=== PATIENT | female | born 1955 | race Caucasian/White ===

== ENCOUNTER 2018-09-18 17:01 | Inpatient (IN) | payer OTHER ==
[~2018-09-18] VITALS: Ht 154.9 cm; Wt 70.3 kg
--- NOTE | 2018-09-18 17:25 | NUR ---
SE RECIBE PTE ALERTA Y ORIENTADA X3 LA CUAL REFIERE VENIR POR REFERIDO MEDICO POR INFLAMACION EN DEDO PULGAR EN PIE DONTE. PTE CON DXT EN 454MG/DL. PTE REFIERE NO ESTAR TOMANDO NINGUN MEDICAMENTO AL MOMENTO Y NO PADECER DE NINGUNA CONDICION MEDICA. SE MIDEN S/V A PTE Y SE COLOCA EN AREA DE OBSERVACION PENDIENTE A EVALUACION MEDICA.
--- NOTE | 2018-09-18 17:52 | NUR ---
SE ORIENTA PTE SOBRE TX MEDICO EL CUAL REFIERE ENTENDER.SE LE EXTRAE MUESTRAS,SE CANALIZA Y SE ADMINSTRA MEDICAMENTO PRIYANKA ORDEN MEDICA.
[2018-09-24] MEDS ORDERED: SIMVASTATIN20 MG PO (08:12)
[2018-09-24] MEDS ORDERED: INTEGRA PLUS C1 EACH PO (08:13)
[2018-09-24] MEDS ORDERED: LOSARTAN-HCTZ1 EAC1 PO (08:13)
[2018-09-24] MEDS ORDERED: JANUMET 50-1,01 EACH PO (08:14)
[2018-09-24] MEDS ORDERED: MOXIFLOXACIN H400 MG PO (08:15)
== END 2018-09-24 10:54 | disposition home or self-care (01) | DRG 240 ==
LOC: ER 17:01 → MEDI 21:40
PROVIDERS: Colon & Rectal Surgery; ADMIT Internal Medicine
PROC: 0Y6N0Z4 Detachment at Left Foot, Complete 1st Ray, Open Approach (ICD-10-PCS; principal; 2018-09-20 11:00)
DX: E11.52 Type 2 diabetes mellitus with diabetic peripheral angiopathy with gangrene (principal); I96 Gangrene, not elsewhere classified; L97.528 Non-pressure chronic ulcer of other part of left foot with other specified severity; L02.612 Cutaneous abscess of left foot; E11.621 Type 2 diabetes mellitus with foot ulcer; B95.61 Methicillin susceptible Staphylococcus aureus infection as the cause of diseases classified elsewhere; B95.1 Streptococcus, group B, as the cause of diseases classified elsewhere; I10 Essential (primary) hypertension; E78.00 Pure hypercholesterolemia, unspecified; D50.8 Other iron deficiency anemias; Z79.4 Long term (current) use of insulin; Z91.14 Patient's other noncompliance with medication regimen

== ENCOUNTER 2019-10-16 14:29 | Inpatient (IN) | payer OTHER ==
[~2019-10-16] VITALS: Ht 152.4 cm; Wt 75.3 kg
[~2019-10-16 14:29] MED LIST: INTEGRA PLUS C1 EACH PO; JANUMET 50-1,01 EACH PO; LOSARTAN-HCTZ1 EAC1 PO; MOXIFLOXACIN H400 MG PO; SIMVASTATIN20 MG PO
[2019-10-24] MEDS ORDERED: INTEGRA PLUS C1 EACH PO (12:28)
[2019-10-24] MEDS ORDERED: VITAMIN B-121000 MC2 SL (12:30)
[2019-10-24] MEDS ORDERED: FOLIC ACID1 MG PO (12:31)
[2019-10-24] MEDS ORDERED: INTESTINEX680 M1 PO (12:36)
== END 2019-10-24 13:14 | disposition home or self-care (01) | DRG 689 ==
LOC: ER 14:29 → MEDJ 20:30 → SURH 10-22 12:10
PROVIDERS: ADMIT Internal Medicine; ATTEND Internal Medicine
PROC: BB24ZZZ Computerized Tomography (CT Scan) of Bilateral Lungs (ICD-10-PCS; principal; 2019-10-16)
PROC: BW40ZZZ Ultrasonography of Abdomen (ICD-10-PCS; 2019-10-17)
PROC: 8E0ZXY6 Isolation (ICD-10-PCS; 2019-10-17)
DX: N39.0 Urinary tract infection, site not specified (principal); A41.9 Sepsis, unspecified organism; N17.8 Other acute kidney failure; L02.612 Cutaneous abscess of left foot; D50.8 Other iron deficiency anemias; E78.00 Pure hypercholesterolemia, unspecified; I11.9 Hypertensive heart disease without heart failure; E86.0 Dehydration; E11.65 Type 2 diabetes mellitus with hyperglycemia; E87.8 Other disorders of electrolyte and fluid balance, not elsewhere classified; E03.8 Other specified hypothyroidism; Z03.818 Encounter for observation for suspected exposure to other biological agents ruled out; Z79.4 Long term (current) use of insulin

== ENCOUNTER 2023-10-26 12:55 | Outpatient (CLI) | payer OTHER ==
[~2023-10-26 12:55] MED LIST changes: +FOLIC ACID1 MG PO; +INTESTINEX680 M1 PO; +VITAMIN B-121000 MC2 SL
== END 2023-10-26 13:00 | disposition home or self-care (01) ==
LOC: RAD 12:55
PROVIDERS: ATTEND Orthopaedic Surgery
DX: M25.561 Pain in right knee (principal)

== ENCOUNTER 2024-05-01 07:24 | Outpatient (CLI) | payer OTHER ==
[2024-05-01 08:11] LABS: HEMATOCRIT 36.7 % (36.0-45.00); HEMOGLOBIN 11.8 g/dL (12.0-15.00); MEAN CORPUSCULAR HEMOGLOBIN 21.8 pg (27.00-32.0); MEAN CORPUSCULAR HGB CONC 32.3 g/dl (32.0-36.0); PLATELET COUNT 279 K/uL (150-450); RED BLOOD COUNT 5.43 M/uL (4.00-6.00); RED CELL DISTRIBUTION WIDTH 16.5 % (11.5-14.5)
[2024-05-01 08:15] LABS: MEAN CELL VOLUME 67.5 fL (80.00-100.00)
[2024-05-01 08:23] LABS: COL EPI 73 SECONDS (82-175)
[2024-05-01 08:28] LABS: INR 0.99; PARTIAL THROMBOPLASTIN TIME 29.1 SECONDS (22.0-34.0); PROTHROMBIN TIME 10.8 SECONDS (9.0-11.5)
[2024-05-01 09:07] LABS: URINE APPEARANCE Cloudy; URINE BILIRRUBIN Negative (NEGATIVE); URINE COLOR Yellow; URINE KETONE Negative (NEGATIVE); URINE LEUKOCYTE Moderate; URINE NITRATE Negative; URINE PROTEIN Negative (NEGATIVE); URINE UROBILINOGEN 0.2 E.U./dl
[2024-05-01 09:12] LABS: URINE EPITHELIAL CELLS 19.4 uL (0.0-38.8); URINE RBC 3.3 uL (0.0-20.8); URINE WBC 2320.9 uL (0.0-23.2)
[2024-05-01 09:35] LABS: ALBUMIN 3.7 gm/dL (3.4-5.0); BILIRUBIN TOTAL 0.39 mg/dL (0.3-1.2); CALCIUM 9.4 mg/dL (8.5-10.1); CREATININE SERUM 1.4 mg/dL (0.55-1.02); GFR 37.62; GLOBULINA 3.9 G/DL (2.4-3.5); POTASSIUM 3.97 mEq/L (3.5-5.1); TOTAL PROTEIN 7.6 gm/dL (6.4-8.2)
[2024-05-01 09:35] LABS: URINE BACTERIA > 9821.5 uL (0.0-1933); URINE GLUCOSE >=1000 MG/DL (NEGATIVE)
[2024-05-01 09:36] LABS: URINE BLOOD Trace
[2024-05-01 09:39] LABS: URINE EPITHELIAL CELLS 0-4 /HPF
== END 2024-05-01 07:26 | disposition home or self-care (01) ==
LOC: RAD 07:24
PROVIDERS: ATTEND Orthopaedic Surgery
DX: Z76.89 Persons encountering health services in other specified circumstances (principal)

== ENCOUNTER 2024-05-08 11:15 | Inpatient (IN) | payer OTHER ==
[~2024-05-08] VITALS: Ht 152.4 cm; Wt 79.8 kg
[2024-05-08 13:23] VITALS: BP 104/68
[2024-05-13] MEDS ORDERED: VANCOMYCIN HCL 1,000 MG VIAL ONE (07:29)
[2024-05-13] MEDS ORDERED: POLYMYXIN B SULFATE 500,000 U VIAL ONE (07:29)
[2024-05-13] MEDS ORDERED: CEFTRIAXONE SODIUM 2,000 MG VIAL ONE (07:30)
[2024-05-13] MEDS ORDERED: LIDOCAINE HCL 1%/EPINEPHRINE 20ML VIAL IJ ONE (07:31)
[2024-05-13] MEDS ORDERED: KETOROLAC TROMETHAMINE 60 MG VIAL IM ONE (07:31)
[2024-05-13] MEDS ORDERED: BUPIVACAINE HCL/Mpf 0.5% 10ML VIAL ONE (07:31)
[2024-05-13] MEDS ORDERED: MORPHINE SULFATE 4 MG/ML CARTRIDGE IV ONE (10:30)
[2024-05-13] MEDS ORDERED: BUPIVACAINE HCL/MPF 0.5% 30ML VIAL ONE (11:36)
[2024-05-13] MEDS ORDERED: PANTOPRAZOLE SODIUM 40 MG TABLET.DR PO SCH (12:54)
[2024-05-13] MEDS ORDERED: SODIUM CHLORIDE 0.45 % 1,000 ML IV SCH (13:00)
[2024-05-13] MEDS ORDERED: TRAMADOL HCL 50 MG TABLET PO PRN (13:00)
[2024-05-13] MEDS ORDERED: MEPERIDINE HCL/PF 50 MG/ML VIAL IM PRN (13:00)
[2024-05-13] MEDS ORDERED: ONDANSETRON HCL 2 MG/ML VIAL IV PRN (13:00)
[2024-05-13] MEDS ORDERED: ONDANSETRON 4 MG TAB.RAPDIS PO PRN (13:00)
[2024-05-13] MEDS ORDERED: ACETAMINOPHEN 325 MG TABLET PO SCH (13:00)
[2024-05-13] MEDS ORDERED: PROMETHAZINE HCL 50 MG/ML AMPUL IM PRN (13:00)
[2024-05-13] MEDS ORDERED: XARELTO10 M1 (13:24)
[2024-05-13] MEDS ORDERED: JARDIANCE25 MG (13:25)
[2024-05-13] MEDS ORDERED: ATORVASTATIN CA20 MG (13:25)
[2024-05-13] MEDS ORDERED: MOUNJARO7.5 MG/0.5 (13:25)
[2024-05-13] MEDS ORDERED: SYNTHROID75 MCG (13:25)
[2024-05-13 14:40] VITALS: BP 109/68; O2SAT 92
[2024-05-13 16:00] VITALS: BP 91/58; O2SAT 98
[2024-05-13] MEDS ORDERED: CELECOXIB 200 MG CAPSULE PO SCH (17:00)
[2024-05-14 00:37] VITALS: BP 90/55; O2SAT 97
[2024-05-14 06:48] LABS: HEMATOCRIT 23.8 % (36.0-45.00); MEAN CORPUSCULAR HGB CONC 31.9 g/dl (32.0-36.0); PLATELET COUNT 168 K/uL (150-450); RED BLOOD COUNT 3.44 M/uL (4.00-6.00); RED CELL DISTRIBUTION WIDTH 16.3 % (11.5-14.5)
[2024-05-14 08:00] VITALS: BP 118/71; O2SAT 900
[2024-05-14 08:06] LABS: HEMOGLOBIN 7.6 g/dL (12.0-15.00)
[2024-05-14] MEDS ORDERED: FUROsemide 20 MG/2 ML VIAL IV SCH (08:15)
[2024-05-14] MEDS ORDERED: CEFTRIAXONE SODIUM 2,000 MG in 0.9 % SODIUM CHLORIDE 100 ML IV SCH (09:00)
[2024-05-14] MEDS ORDERED: RIVAROXABAN 10 MG TAB PO SCH (09:00)
[2024-05-14 13:00] VITALS: BP 97/50; O2SAT 95
[2024-05-14 22:37] VITALS: BP 127/67; O2SAT 95
[2024-05-15 00:37] VITALS: BP 109/49; O2SAT 98
[2024-05-15 08:00] VITALS: BP 160/86; O2SAT 97
[2024-05-15 08:06] LABS: HEMATOCRIT 28.6 % (36.0-45.00); MEAN CELL VOLUME 71.3 fL (80.00-100.00); MEAN CORPUSCULAR HEMOGLOBIN 23.1 pg (27.00-32.0); MEAN CORPUSCULAR HGB CONC 32.5 g/dl (32.0-36.0); PLATELET COUNT 162 K/uL (150-450); RED BLOOD COUNT 4.01 M/uL (4.00-6.00); RED CELL DISTRIBUTION WIDTH 17.3 % (11.5-14.5)
[2024-05-15 08:07] LABS: HEMOGLOBIN 9.3 g/dL (12.0-15.00)
[2024-05-15] MEDS ORDERED: SENNA/DOCUSATE SODIUM 1 TAB TABLET PO SCH (09:00)
[2024-05-15 13:00] VITALS: BP 150/74; O2SAT 100
[2024-05-15 13:11] LABS: HEMATOCRIT 33.9 % (36.0-45.00); MEAN CELL VOLUME 74.3 fL (80.00-100.00); MEAN CORPUSCULAR HEMOGLOBIN 23.8 pg (27.00-32.0); PLATELET COUNT 171 K/uL (150-450); RED BLOOD COUNT 4.57 M/uL (4.00-6.00); RED CELL DISTRIBUTION WIDTH 19.6 % (11.5-14.5)
[2024-05-15 13:13] LABS: HEMOGLOBIN 10.9 g/dL (12.0-15.00)
== END 2024-05-15 17:37 | DRG 470 ==
LOC: O/R 05-13 05:20 → SURG 05-13 05:20 → SURH 05-13 07:00 → SURG 05-13 13:35
PROVIDERS: ADMIT Orthopaedic Surgery; ATTEND Orthopaedic Surgery
PROC: 0SRC0J9 Replacement of Right Knee Joint with Synthetic Substitute, Cemented, Open Approach (ICD-10-PCS; principal; 2024-05-15)
PROC: 30233N1 Transfusion of Nonautologous Red Blood Cells into Peripheral Vein, Percutaneous Approach (ICD-10-PCS; 2024-05-15)
DX: M17.11 Unilateral primary osteoarthritis, right knee (principal); D62 Acute posthemorrhagic anemia

== ENCOUNTER 2024-05-27 09:18 | Emergency (ER) | payer OTHER ==
[~2024-05-27] VITALS: Ht 152.4 cm; Wt 79.8 kg
[~2024-05-27 09:18] MED LIST changes: +ATORVASTATIN CA20 MG; +JARDIANCE25 MG; +MOUNJARO7.5 MG/0.5; +SYNTHROID75 MCG; +XARELTO10 M1
[2024-05-27] MEDS ORDERED: CEFTRIAXONE SODIUM 1,000 MG VIAL IV ONE (09:45)
[2024-05-27] MEDS ORDERED: CEFTRIAXONE SODIUM 1,000 MG VIAL ONE (09:48)
[2024-05-27 10:07] LABS: HEMATOCRIT 34.9 % (36.0-45.00); HEMOGLOBIN 11.1 g/dL (12.0-15.00); MEAN CELL VOLUME 73.5 fL (80.00-100.00); MEAN CORPUSCULAR HEMOGLOBIN 23.4 pg (27.00-32.0); MEAN CORPUSCULAR HGB CONC 31.9 g/dl (32.0-36.0); PLATELET COUNT 396 K/uL (150-450); RED BLOOD COUNT 4.75 M/uL (4.00-6.00); RED CELL DISTRIBUTION WIDTH 19.9 % (11.5-14.5)
[2024-05-27 10:37] LABS: ALBUMIN 3.2 gm/dL (3.4-5.0); BILIRUBIN TOTAL 0.54 mg/dL (0.3-1.2); CALCIUM 9.4 mg/dL (8.5-10.1); CREATININE SERUM 1.29 mg/dL (0.55-1.02); GFR 41.35; GLOBULINA 4.9 G/DL (2.4-3.5); POTASSIUM 4.6 mEq/L (3.5-5.1); TOTAL PROTEIN 8.1 gm/dL (6.4-8.2)
== END 2024-05-27 11:09 | disposition home or self-care (01) ==
LOC: ER 09:21
PROVIDERS: General Practice
DX: L89.612 Pressure ulcer of right heel, stage 2 (principal); E11.621 Type 2 diabetes mellitus with foot ulcer; Z79.84 Long term (current) use of oral hypoglycemic drugs; Z91.018 Allergy to other foods
CPT/HCPCS: 11042; 36415; 96365; 99282; J0696

== ENCOUNTER 2024-08-05 07:17 | Outpatient (CLI) | payer OTHER | END 2024-08-05 07:25 | disposition home or self-care (01) | LOC: LAB 07:17 | PROVIDERS: ATTEND Orthopaedic Surgery | DX: E55.9 Vitamin D deficiency, unspecified (principal); M85.9 Disorder of bone density and structure, unspecified; E56.1 Deficiency of vitamin K ==

== ENCOUNTER 2024-12-02 12:15 | Emergency (ER) | payer OTHER ==
[~2024-12-02] VITALS: Ht 152.4 cm; Wt 74.4 kg
[2024-12-02] MEDS ORDERED: 0.9 % SODIUM CHLORIDE 1,000 ML IV SCH (13:00)
[2024-12-02 13:48] LABS: COVID-19 AG POSITIVE (NEGATIVE)
[2024-12-02 13:52] LABS: BASO % 0.6 % (0.1-1.2); EOS # 0.02 (0.04-0.54); EOS % 0.3 % (0.7-7.0); LYMPH # 0.92 (1.18-3.74); LYMPH % 13.5 % (19.3-53.1); MONO # 0.60 (0.24-0.82); MONO % 8.8 % (4.7-12.5); NEUT # 5.21 (1.56-6.13); NEUT % 76.4 % (34.0-71.1); RED CELL DISTRIBUTION WIDTH 18.1 % (11.6-14.4)
[2024-12-02] MEDS ORDERED: FAMOTIDINE/PF 20 MG in 0.9 % SODIUM CHLORIDE 8 ML IV PUSH STA (15:57)
[2024-12-02] MEDS ORDERED: ACETAMINOPHEN 500 MG GEL..CAP PO ONE (16:00)
[2024-12-02] MEDS ORDERED: ONDANSETRON HCL 2 MG/ML VIAL IV ONE (16:00)
[2024-12-02 16:34] LABS: BUN CREA RATIO 17.0 (7.0-25.0); CREATININE SERUM 1.39 mg/dL (0.55-1.02); GFR 37.82; GLUCOSE FASTING 116.0 mg/dL (65-100); OSMOLALITY SERUM 295.0 MOSM/KG (275-295)
[2024-12-02] MEDS ORDERED: PAXLOVID 300-11 EAC1 PO (17:36)
[2024-12-02] MEDS ORDERED: ONDANSETRON ODT8 MG PO (17:36)
[2024-12-02] MEDS ORDERED: TUSNEL LIQUID178 ML PO (17:36)
[2024-12-02] MEDS ORDERED: PEPCID AC20 MG PO (17:36)
== END 2024-12-02 17:41 | disposition home or self-care (01) ==
LOC: ER 12:15
PROVIDERS: Emergency Medicine
DX: U07.1 COVID-19 (principal); J00 Acute nasopharyngitis [common cold]; Z91.018 Allergy to other foods
CPT/HCPCS: 36415; 71046; 96365; 96366; 99283; J2405; J3490; J7030